=== PATIENT | female | born 1940 ===

== ENCOUNTER 2016-12-26 13:47 | Observation (INO) | payer OTHER ==
[2016-12-26 13:57] VITALS: RESP 16
[2016-12-26] MEDS ORDERED: Sodium Chloride 0.9% 1,000 ML IV STA (14:22)
[2016-12-26] MEDS ORDERED: Iohexol 240 (50 ml) PO ONE (14:22)
--- NOTE | 2016-12-26 14:26 | ED PDOC ---
HPI: Abdomen Time Seen by Provider: 12/26/16 14:12 Chief Complaint (Nursing): Abdominal Pain Chief Complaint (Provider): abdominal pain History Per: Patient History/Exam Limitations: no limitations Onset/Duration Of Symptoms: Days (x 2 weeks), Intermittent Episodes Additional Complaint(s): Alphonso Jean is a 77 year old female, with a previous medical history of asthma and osteoperosis, who presents to the ED with complaints of intermittent abdominal pain ongoing for 2 weeks. Patient denies any nausea, vomiting, diarrhea, urinary symptoms, chest pain, fevers, chills or headache. She reports being seen at [facility] ED approximately [address] and labs were preformed and she was discharged with instructions to follow up with GI but she reports not doing so. PMD: none provided Past Medical History Reviewed: Historical Data Vital Signs: Last Vital Signs Temp 97.0 F L 12/26/16 13:55 Pulse 94 H 12/26/16 13:55 Resp 16 12/26/16 13:55 BP 155/94 H 12/26/16 13:55 Pulse Ox 100 12/26/16 14:48 - Medical History PMH: Asthma, Gastritis, Hypercholesterolemia, Osteoporosis - Family History Family History: States: Unknown Family Hx - Immunization History Hx Tetanus Toxoid Vaccination: Yes Hx Influenza Vaccination: No Hx Pneumococcal Vaccination: Yes - Home Medications Home Medications: Ambulatory Orders Medication Instructions Recorded Famotidine [Pepcid] 20 mg PO DAILY #20 tab 12/17/16 - Allergies Allergies/Adverse Reactions: Allergies Allergy/AdvReac Type Severity Reaction Status Date / Time No Known Allergies Allergy Verified 12/26/16 13:55 Review of Systems ROS Statement: Except As Marked, All Systems Reviewed And Found Negative Constitutional: Negative for: Fever, Chills Cardiovascular: Negative for: Chest Pain Gastrointestinal: Positive for: Abdominal Pain. Negative for: Nausea, Vomiting , Diarrhea Genitourinary Female: Negative for: Dysuria, Frequency, Incontinence, Hematuria Neurological: Negative for: Headache Physical Exam - Reviewed Nursing Documentation Reviewed: Yes Vital Signs Reviewed: Yes - Physical Exam Appears: Positive for: Non-toxic, No Acute Distress Head Exam: Positive for: ATRAUMATIC, NORMAL INSPECTION, NORMOCEPHALIC Skin: Positive for: Normal Color, Warm, DRY Eye Exam: Positive for: EOMI, Normal appearance, PERRL ENT: Positive for: Normal ENT Inspection Neck: Positive for: Normal, Painless ROM Cardiovascular/Chest: Positive for: Regular Rate, Rhythm Respiratory: Positive for: Wheezing (bilateral) Gastrointestinal/Abdominal: Positive for: Bowel Sounds, Soft, Tenderness, Guarding (diffuse) Back: Positive for: Normal Inspection. Negative for: L CVA Tenderness, R CVA Tenderness, Vertebral Tenderness Extremity: Positive for: Normal ROM Neurologic/Psych: Positive for: Alert, Oriented - ECG O2 Sat by Pulse Oximetry: 100 (RA) Pulse Ox Interpretation: Normal Medical Decision Making Medical Decision Making: Initial Plan: * CT abd & pelvis IV and PO contrast * labs * pepcid 20 mg IV * IV NS 1,000 ml at 1,000 ml/hr * Troponin I * ED obs * lipase * reevaluation Upon evaluation of previous records from [facility] work up, Lipase was [address] shows no visible appendix which is why a repeat CT scan and lipase are ordered. Scribe Attestation: Documented by Evette Bhagat, acting as a scribe for Justice Downs MD. Provider Scribe Attestation: All medical record entries made by the Scribe were at my direction and personally dictated by me. I have reviewed the chart and agree that the record accurately reflects my personal performance of the history, physical exam, medical decision making, and the department course for this patient. I have also personally directed, reviewed, and agree with the discharge instructions and disposition. ED OBSERVATION Date of observation admission: 12/26/16 Time of observation admission: 14:22 - Observation admission statement Patient is being placed in observation because:: Abdominal pain and ED workup - Goals of Observation Goals of observation are:: symptom alleviation and work up results - Progress Note Progress Note: 12/26/16 14:52 S/O Dr. Kelsi baron on labs and imaging. Disposition - Clinical Impression Clinical Impression: Abdominal pain - Patient ED Disposition Is Patient to be Admitted: Transfer of Care - Disposition Disposition: Transfer of Care Disposition Time: 14:53 Condition: STABLE Patient Signed Over To: Alok Dolan III
[2016-12-26] MEDS ORDERED: Iohexol 240 (50 ml) ONE (14:42)
--- NOTE | 2016-12-26 15:18 | ED PDOC ---
- Laboratory Results Result Diagrams: 12/26/16 14:45 12/26/16 14:45 - ECG O2 Sat by Pulse Oximetry: 100 (RA) Pulse Ox Interpretation: Normal Medical Decision Making Medical Decision Makin:00 Patient signed out to me by Dr. Himanshu MD. Pending CT imaging results and blood work. labs reviewed, mild elev lipase but <3x normal LFTs normal CT report reviewed Accession No. : [id number] Patient Name / ID : STEVEN LERMA / [id number] Exam Date : 12/26/2016 17:17:04 ( Approved ) Study Comment : Sex / Age : F / 76Y Creator : Javi Jacob MD Dictator : Javi Jacob MD Maintenance Superintendent : [employer] Operator : Javi Jacob MD Approver2 : Report Date : 12/26/2016 18:05:35 My Comment : PROCEDURE: CT Abdomen and Pelvis with contrast HISTORY: Unspecified abdominal pain. COMPARISON: None. TECHNIQUE: Contrast dose: 80 cc Omnipaque 300 Radiation dose: Total exam DLP = 336.88 mGy-cm. This CT exam was performed using one or more of the following dose reduction techniques: Automated exposure control, adjustment of the mA and/or kV according to patient size, and/or use of iterative reconstruction technique. FINDINGS: LOWER THORAX: Unremarkable. LIVER: Hepatic steatosis. No focal masses. No intrahepatic bile duct dilatation or perihepatic ascites. GALLBLADDER AND BILE DUCTS: Collapse/contracted gallbladder. No gallstones are identified. PANCREAS: Unremarkable. No gross lesion or ductal dilatation. SPLEEN: Unremarkable. ADRENALS: Unremarkable. No mass. KIDNEYS AND URETERS: Unremarkable. No hydronephrosis. No solid mass. Incidental finding(s): Simple cyst upper pole right kidney 18 mm VASCULATURE: Unremarkable. No aortic aneurysm. BOWEL: Bilateral inguinal hernias containing loops of nondistended small bowel. The left hernia opening measures 6.2 cm. The opening of the right hernia 3.1 cm. No evidence of incarceration or more proximal obstruction. APPENDIX: No abnormalities to suggest acute appendicitis. No right lower quadrant inflammatory processes identified. PERITONEUM: Unremarkable. No free fluid. No free air. LYMPH NODES: Unremarkable. No enlarged lymph nodes. BLADDER: Unremarkable. REPRODUCTIVE: Unremarkable. BONES: Multiple lower thoracic and upper lumbar vertebral body fractures likely old, osteopenic related. OTHER FINDINGS: None. IMPRESSION: Bilateral inguinal hernias containing nondistended loops of small bowel. Left hernia is larger than the right. No evidence of mechanical obstruction or incarceration. Additional benign and/or incidental findings described above. Pt re-evaluated, pain not near inguinal area. Pain mid abdomen to epigastrum. States dark stools but no BRBPR. Given repeat visits to ED, worsening pain, elderly, admit to med surg obs Dr Tran hospitalist r/o mild pancreatitis, intestinal angina, gastric ulcer, or other. GI consult. Documented by Ryan Downs, acting as a scribe for Alok Dolan, DO All medical record entries made by the Scribe were at my direction and personally dictated by me. I have reviewed the chart and agree that the record accurately reflects my personal performance of the history, physical exam, medical decision making, and the department course for this patient. I have also personally directed, reviewed, and agree with the discharge instructions and disposition. Disposition Counseled Patient/Family Regarding: Studies Performed, Diagnosis - Clinical Impression Clinical Impression: Abdominal pain - POA Present On Arrival: None - Disposition Disposition: Hospitalized as Observation Patient Disposition Time: 17:55 Condition: STABLE
[2016-12-26 15:23] LABS: BASO % 0.4 % (0.0-2.0); EOS # 0.2 K/uL (0.0-0.7); HEMOGLOBIN 11.7 g/dL (12.0-16.0); LYMPH # 2.1 K/uL (1.0-4.3); LYMPH % 27.1 % (20.0-40.0); MEAN CELL VOLUME 91.9 fl (81.0-99.0); MEAN CORPUSCULAR HEMOGLOBIN 30.3 pg (27.0-31.0); MEAN PLATELET VOLUME 9.6 fl (7.2-11.7); MONO # 0.8 K/uL (0.0-0.8); MONO % 9.9 % (0.0-10.0); NEUT # 4.7 K/uL (1.8-7.0); NEUT % 59.6 % (50.0-75.0); NRBC % 0.1 % (0.0-0.0); RBC 3.86 Mil/uL (3.80-5.20); RED CELL DISTRIBUTION WIDTH 14.1 % (11.5-14.5); WHITE BLOOD COUNT 7.8 K/uL (4.8-10.8)
[2016-12-26 15:25] LABS: ALB/GLOB RATIO 1.2 (1.0-2.1); ALBUMIN 4.2 g/dL (3.5-5.0); ALT/SGPT 33 U/L (9-52); AST/SGOT 29 U/L (14-36); BLOOD UREA NITROGEN 15 mg/dl (7-17); GFR AFRICAN-AMERICAN > 60; GFR NON-AFRICAN AMERICAN > 60; LIPASE 409 U/L (23-300)
[2016-12-26] MEDS ORDERED: Iohexol 300 100 ML IJ ONE (16:44)
[2016-12-26] MEDS ORDERED: Sodium Chloride 0.9% 50 ML IV ONE (16:44)
--- NOTE | 2016-12-26 18:07 | CT ---
PROCEDURE: CT Abdomen and Pelvis with contrast HISTORY: Unspecified abdominal pain. COMPARISON: None. TECHNIQUE: Contrast dose: 80 cc Omnipaque 300 Radiation dose: Total exam DLP = 336.88 mGy-cm. This CT exam was performed using one or more of the following dose reduction techniques: Automated exposure control, adjustment of the mA and/or kV according to patient size, and/or use of iterative reconstruction technique. FINDINGS: LOWER THORAX: Unremarkable. LIVER: Hepatic steatosis. No focal masses. No intrahepatic bile duct dilatation or perihepatic ascites. GALLBLADDER AND BILE DUCTS: Collapse/contracted gallbladder. No gallstones are identified. PANCREAS: Unremarkable. No gross lesion or ductal dilatation. SPLEEN: Unremarkable. ADRENALS: Unremarkable. No mass. KIDNEYS AND URETERS: Unremarkable. No hydronephrosis. No solid mass. Incidental finding(s): Simple cyst upper pole right kidney 18 mm VASCULATURE: Unremarkable. No aortic aneurysm. BOWEL: Bilateral inguinal hernias containing loops of nondistended small bowel. The left hernia opening measures 6.2 cm. The opening of the right hernia 3.1 cm. No evidence of incarceration or more proximal obstruction. APPENDIX: No abnormalities to suggest acute appendicitis. No right lower quadrant inflammatory processes identified. PERITONEUM: Unremarkable. No free fluid. No free air. LYMPH NODES: Unremarkable. No enlarged lymph nodes. BLADDER: Unremarkable. REPRODUCTIVE: Unremarkable. BONES: Multiple lower thoracic and upper lumbar vertebral body fractures likely old, osteopenic related. OTHER FINDINGS: None. IMPRESSION: Bilateral inguinal hernias containing nondistended loops of small bowel. Left hernia is larger than the right. No evidence of mechanical obstruction or incarceration. Additional benign and/or incidental findings described above.
[2016-12-26 19:06] LABS: VENOUS BLOOD GAS BASE EXCESS 2.2 mmol/L (0.0-2.0); VENOUS BLOOD GAS PCO2 46 mmHg (40-60); VENOUS BLOOD GAS PO2 46 mm/Hg (30-55); VENOUS BLOOD PH 7.39 (7.32-7.43)
[2016-12-26 19:20] LABS: URINE BILIRUBIN NEGATIVE (NEGATIVE); URINE BLOOD NEGATIVE (NEGATIVE); URINE CLARITY CLEAR (Clear); URINE COLOR COLORLESS (YELLOW); URINE GLUCOSE (UA) NEG (Normal); URINE LEUKOCYTE ESTERASE NEG Leu/uL (Negative); URINE NITRATE NEGATIVE (NEGATIVE); URINE PROTEIN NEGATIVE (NEGATIVE); URINE UROBILINOGEN 0.2-1.0 mg/dL (0.2-1.0)
--- NOTE | 2016-12-26 19:39 | CP.PCM.HP ---
History of Present Illness - History of Present Illness History of Present Illness: CC: stomach pain HPI: 76 year old female with hx asthma and osteoporosis and gastritis ( according to daughter) presents with a several week history of mild to moderate midepigastric abdominal pain, waxing and waning, sharp in nature. Patient was seen in [facility] a little over a week ago, and states she was instructed a few days ago by a analysis manager to come to [place] to make an appointment with someone on the second floor. The daughter was worried because of lack of insurance the patient would not be accepted, so came through the Emergency Room. CT was negative for hernia. Lipase was mildly negative. No WBC, H/H normal, and no hx of melena. Lactic Acid was normal, as was hepatic panel. Patient also denies constipation, diarrhea, nausea, emesis, and is able to eat normally. ROS: per HPI, 12 systems reviewed and negative PMH: asthma and osteoporosis and gastritis PSH: denies FH: denies SH: denies tobacco, ETOH, IVDU Meds: as below Allergies: NKDA Vitals: reviewed and currently stable Temp Pulse Resp BP Pulse Ox 97.8 F 78 16 132/70 100 12/26/16 18:35 12/26/16 18:35 12/26/16 18:35 12/26/16 18:35 12/26/16 19:25 Exam: GEN: WDWN, alert, cooperative HEENT: NCAT, PERRL, EOMI NECK: supple, no JVD, no lymphadenopathy CARDIAC: +S1S2 RRR LUNG: CTAB No WRR ABD: SOFT epigastric tenderness . ND BSX4 NO MASSES NO HSM EXT: +pedal pulses, equal strength NEURO: AAOx3 SKIN warm, dry PSYCH normal mood, normal affect Labs: 12/26/16 14:45 12/26/16 14:45 LIPASE 400 Rads: CT+ HERNIA Active Medications: Allergies No Known Allergies Allergy (Verified 12/26/16 13:55) Height & Weight Height 4 ft 2 in Weight 97 lb Start Date/Time Active Medications 12/27/16 09:00 Pantoprazole [Protonix EC Tab] 20 mg PO DAILY Assessment and Plan: 76 year old female with hx asthma and osteoporosis and gastritis (according to daughter) presents with a several week history of mild to moderate midepigastric abdominal pain, waxing and waning, sharp in nature. Patient was seen in [facility] a little over a week ago, and states she was instructed a few days ago by a analysis manager to come to [place] to make an appointment with someone on the second floor. The daughter was worried because of lack of insurance the patient would not be accepted, so came through the Emergency Room. CT was negative for hernia. Lipase was mildly negative. No WBC, H/H normal, and no hx of melena. Lactic Acid was normal, as was hepatic panel. Patient also denies constipation, diarrhea, nausea, emesis, and is able to eat normally. Gastritis Patient instructed to go to [facility] for follow up and GI referral via [facility] Given Protonix prescription Also counseled patient on bland diet, no citrus, no tomatoes, no fried foods , no coffee stable for discharge home with meds and outpatient follow up Present on Admission - Present on Admission Any Indicators Present on Admission: No Past Patient History - Past Social History Smoking Status: Never Smoked - CARDIAC Hx Hypercholesterolemia: Yes - PULMONARY Hx Asthma: Yes - HEENT Other/Comment: Caries - MUSCULOSKELETAL/RHEUMATOLOGICAL Hx Osteoporosis: Yes - GASTROINTESTINAL Hx Gastritis: Yes - PSYCHIATRIC Hx Substance Use: No - SURGICAL HISTORY Hx Surgeries: No - ANESTHESIA Hx Anesthesia: No Meds Allergies/Adverse Reactions: Allergies Allergy/AdvReac Type Severity Reaction Status Date / Time No Known Allergies Allergy Verified 12/26/16 13:55 Results - Vital Signs Recent Vital Signs: Last Vital Signs Temp 97.8 F 12/26/16 18:35 Pulse 78 12/26/16 18:35 Resp 16 12/26/16 18:35 BP 132/70 12/26/16 18:35 Pulse Ox 100 12/26/16 19:25 - Labs Result Diagrams: 12/26/16 14:45 12/26/16 14:45 Labs: Laboratory Results - last 24 hr 12/26/16 12/26/16 12/26/16 14:45 14:45 19:03 WBC 7.8 RBC 3.86 Hgb 11.7 L Hct 35.5 MCV 91.9 MCH 30.3 MCHC 33.0 RDW 14.1 Plt Count 285 MPV 9.6 Neut % (Auto) 59.6 Lymph % (Auto) 27.1 [place] % (Auto) 9.9 Eos % (Auto) 3.0 Baso % (Auto) 0.4 Neut # 4.7 Lymph # 2.1 [place] # 0.8 Eos # 0.2 Baso # 0.0 pO2 46 VBG pH 7.39 VBG pCO2 46 VBG HCO3 26.2 VBG Total CO2 29.2 H VBG O2 Sat (Calc) 84.0 H VBG Base Excess 2.2 H VBG Potassium 3.9 Glucose 91 Lactate 1.0 FiO2 21.0 Sodium 139 137.0 Potassium 4.0 Chloride 104 105.0 Carbon Dioxide 26 Anion Gap 13 BUN 15 Creatinine 0.7 Est GFR ( Amer) > 60 Est GFR (Non-Af Amer) > 60 Random Glucose 91 Calcium 9.0 Total Bilirubin 0.3 AST 29 ALT 33 Alkaline Phosphatase 72 Troponin I < 0.0120 Total Protein 7.7 Albumin 4.2 Globulin 3.5 Albumin/Globulin Ratio 1.2 Lipase 409 H Venous Blood Potassium 3.9
[2016-12-26 20:49] VITALS: BP 122/78; PULSE 82; TEMP 98.2; O2SAT 98
[2016-12-27] MEDS ORDERED: Pantoprazole 20 mg EC Tab PO SCH (09:00)
== END 2016-12-26 19:32 | disposition home or self-care (01) ==
LOC: H.ER 13:47 → H.EROBSV 14:22 → H.ERHOLD 18:44
PROVIDERS: ADMIT Student in an Organized Health Care Education/Training Program; ATTEND Student in an Organized Health Care Education/Training Program
DX: K29.70 Gastritis, unspecified, without bleeding (principal); E78.00 Pure hypercholesterolemia, unspecified; J45.909 Unspecified asthma, uncomplicated; M81.0 Age-related osteoporosis without current pathological fracture